=== PATIENT | male | born 1940 | race African-American/Black ===

== ENCOUNTER 2017-10-18 13:16 | Emergency (ER) | payer MEDICARE ==
[~2017-10-18] VITALS: Ht 175.3 cm; Wt 73.0 kg
[~2017-10-18 13:16] MED LIST: AMLO10TA80 PO; ASPI-518 PO; SIMV40TA2 PO; TERA5CAP4; URO10; ZET10 PO
[2017-10-18 14:30] LABS: BASOPHILS % 1.1 % (0.0-2.0); EOSINOPHILS % 2.5 % (0.0-5.0); HEMATOCRIT. 34.9 % (42.0-52.0); HEMOGLOBIN. 11.5 g/dL (14.0-18.0); LYMPHOCYTES % 18.6 % (20.0-50.0); MEAN CORPUSCULAR HEMOGLOBIN 28.6 pg (28.0-32.0); MEAN CORPUSCULAR VOLUME 86.6 fL (80.0-94.0); MEAN PLATELET VOLUME 8.2 fl (7.4-10.4); MONOCYTES % 8.9 % (2.0-8.0); NEUTROPHILS % 68.9 % (40.0-76.0); PLATELET 182 x1000/uL (130-400); RED BLOOD CELL COUNT 4.03 mill/uL (4.7-6.1)
[2017-10-18 14:36] LABS: CHLORIDE 105 mEq/L (98-107)
[2017-10-18 14:38] LABS: PROTHROMBIN TIME 10.3 sec (9.4-11.6)
[2017-10-18 17:46] VITALS: BP 134/76
== END 2017-10-18 17:47 | disposition home or self-care (01) ==
LOC: ER 14:32
DX: R42 Dizziness and giddiness (principal); H53.2 Diplopia; R53.1 Weakness; I10 Essential (primary) hypertension; I25.10 Atherosclerotic heart disease of native coronary artery without angina pectoris; Z95.1 Presence of aortocoronary bypass graft
CPT/HCPCS: 36415; 70450; 80053; 84484; 85025; 85610; 85730; 93005; 99285

== ENCOUNTER 2019-09-09 09:41 | Inpatient (IN) | payer MEDICARE ==
[~2019-09-09] VITALS: Ht 327.7 cm; Wt 79.4 kg
[~2019-09-09 09:41] MED LIST changes: +EZET10TA13 PO; -ZET10 PO
[2019-09-09] MEDS ORDERED: SODIUM CHLORIDE 0.9% 500 ML IV ONE (10:30)
[2019-09-09 11:07] LABS: BASOPHILS % 0.8 % (0.0-2.0); EOSINOPHILS % 5.4 % (0.0-5.0); HEMATOCRIT. 38.7 % (42.0-52.0); HEMOGLOBIN. 12.7 g/dL (14.0-18.0); MEAN CORPUSCULAR HEMOGLOBIN 28.4 pg (28.0-32.0); MEAN CORPUSCULAR VOLUME 86.2 fL (80.0-94.0); MEAN PLATELET VOLUME 8.6 fl (7.4-10.4); MONOCYTES % 10.9 % (2.0-8.0); NEUTROPHILS % 64.9 % (40.0-76.0); PLATELET 193 x1000/uL (130-400); RED BLOOD CELL COUNT 4.49 mill/uL (4.7-6.1); RED CELL DISTRIBUTION WIDTH 15.3 % (11.6-14.6)
[2019-09-09 11:13] LABS: CHLORIDE 111 mEq/L (98-107)
[2019-09-09] MEDS ORDERED: ASPIRIN 81MG TABLET PO NR (12:30)
[2019-09-09 12:32] LABS: CLARITY URINE CLEAR (CLEAR); COLOR URINE YELLOW (YELLOW); KETONES URINE NEGATIVE (NEGATIVE); LEUKOCYTE ESTERASE URINE NEGATIVE (NEGATIVE); NITRITE URINE NEGATIVE (NEGATIVE); OCCULT BLOOD URINE NEGATIVE (NEGATIVE); PROTEIN URINE 1+ (NEGATIVE); SPECIFIC GRAVITY URINE 1.016 (1.005-1.030); UROBILINOGEN URINE 0.2 E.U./dL (0.2-1.0)
[2019-09-09] MEDS ORDERED: ACETAMINOPHEN 325MG TABLET PO PRN (14:45)
[2019-09-09] MEDS ORDERED: IPRATROPIUM/ALBUTEROL 0.5-3(2.5)MG/3ML NEB NEB PRN (14:45)
[2019-09-09] MEDS ORDERED: ACETAMINOPHEN 650MG SUPP PR PRN (14:45)
[2019-09-09] MEDS ORDERED: DIPHENHYDRAMINE 50MG/ML VIAL IV PRN (14:45)
[2019-09-09] MEDS ORDERED: DOCUSATE SODIUM 100MG CAPSULE PO PRN (14:45)
[2019-09-09] MEDS ORDERED: ONDANSETRON HCL 4MG/2ML INJ IV PRN (14:45)
[2019-09-09] MEDS ORDERED: NA PHOS,M-B/NA PHOS,DI-BA ENEMA 118ML PR PRN (14:45)
[2019-09-09] MEDS ORDERED: CLONIDINE 0.1MG TABLET PO PRN (14:45)
[2019-09-09] MEDS ORDERED: GUAIFENESIN 200MG/10ML SUGAR FREE UDC PO PRN (14:45)
[2019-09-09] MEDS ORDERED: MAGNESIUM/ALUMINUM HYDROXIDE/SIMETHICONE 30ML UDC PO PRN (14:45)
[2019-09-09] MEDS ORDERED: HYDROCODONE/ACETAMINOPHEN 5/325MG TABLET PO PRN (14:45)
[2019-09-09] MEDS ORDERED: HYDRALAZINE 20MG/ML VIAL IV NR (16:00)
[2019-09-09] MEDS ORDERED: LORA10TA7 MT (16:52)
[2019-09-09] MEDS ORDERED: LORA-250 MT (16:52)
[2019-09-09 17:00] VITALS: BP 187/83
[2019-09-09] MEDS: AMLODIPINE 10MG TABLET PO SCH (18:14)
[2019-09-09] MEDS: NITROGLYCERIN OINT 1GM/INCH UDPKT TD SCH ×2 (18:15→20:58)
[2019-09-09 18:23] VITALS: BP 187/83
[2019-09-09 18:40] VITALS: BP 181/97
[2019-09-09 20:00] VITALS: BP 190/100
[2019-09-09] MEDS: ENOXAPARIN 40MG/0.4ML SYR SUBCUT SCH (20:58)
[2019-09-09] MEDS ORDERED: ATORVASTATIN CALCIUM 20MG TABLET PO SCH (21:00)
[2019-09-09] MEDS: HYDRALAZINE HCL 50MG TABLET PO SCH (21:01)
[2019-09-09] MEDS: LORAZEPAM 0.5MG TABLET PO PRN (23:29)
[2019-09-10] VITALS (7 sets, daily range): BP systolic 132–165; BP diastolic 72–87
[2019-09-10] MEDS: NITROGLYCERIN OINT 1GM/INCH UDPKT TD SCH ×3 (05:07→22:15)
[2019-09-10] MEDS: HYDRALAZINE HCL 50MG TABLET PO SCH ×3 (05:07→22:15)
[2019-09-10 06:12] LABS: BASOPHILS % 1.1 % (0.0-2.0); EOSINOPHILS % 7.4 % (0.0-5.0); HEMATOCRIT. 36.4 % (42.0-52.0); HEMOGLOBIN. 12.1 g/dL (14.0-18.0); LYMPHOCYTES % 21.6 % (20.0-50.0); MEAN CORPUSCULAR HEMOGLOBIN 28.4 pg (28.0-32.0); MEAN CORPUSCULAR VOLUME 85.5 fL (80.0-94.0); MEAN PLATELET VOLUME 8.8 fl (7.4-10.4); NEUTROPHILS % 60.9 % (40.0-76.0); PLATELET 191 x1000/uL (130-400); RED BLOOD CELL COUNT 4.26 mill/uL (4.7-6.1); RED CELL DISTRIBUTION WIDTH 15.2 % (11.6-14.6)
[2019-09-10 06:17] LABS: CHLORIDE 109 mEq/L (98-107)
[2019-09-10 06:25] LABS: LDL CHOLESTEROL 169 mg/dL (5-100)
[2019-09-10 06:26] LABS: CREATINE KINASE 310 IU/L (39-308); CREATINE KINASE MB FRACTION 2.3 ng/mL (0.5-3.6); HDL CHOLESTEROL 61 mg/dL (40-59); T4 FREE 0.93 ng/dL (0.76-1.46)
[2019-09-10 06:49] LABS: VITAMIN B12 SERUM 1153 pg/mL (211-911)
[2019-09-10] MEDS ORDERED: MEDICATION NOT ON FORMULARY EA (Simvastatin (Zocor) 40 MG) PO SCH (09:00)
[2019-09-10] MEDS: AMLODIPINE 10MG TABLET PO SCH (09:06)
[2019-09-10] MEDS: EZETIMIBE 10MG TABLET PO SCH (09:06)
[2019-09-10] MEDS: ASPIRIN 81MG EC TABLET PO SCH (09:06)
[2019-09-10] MEDS: TERAZOSIN HCL 5MG CAPSULE PO SCH (09:06)
[2019-09-10 11:00] LABS: *AMPHETAMINES SCREEN URINE NEGATIVE (NEGATIVE); *BARBITURATES SCREEN URINE NEGATIVE (NEGATIVE); *BENZODIAZEPINES SCREEN URINE PRESUMTIVE POSITIVE (NEGATIVE); *COCAINE SCREEN URINE NEGATIVE (NEGATIVE); METHADONE URINE SCREEN NEGATIVE (NEGATIVE); OPIATES URINE SCREEN NEGATIVE (NEGATIVE); PHENCYCLIDINE URINE SCREEN NEGATIVE (NEGATIVE)
[2019-09-10 11:07] LABS: CANNABINOID URINE SCREEN NEGATIVE (NEGATIVE)
[2019-09-10] MEDS ORDERED: LORAZEPAM 2MG/ML CPJ IV PRN (15:15)
[2019-09-10 16:40] LABS: BG CARBOXYHEMOGLOBIN 0.3 % (0.5-1.5); BG DEOXYHEMOGLOBIN 3.5 % (0.0-5.0); BG HCO3 ACT 26.6 mmol/L (22.0-26.0); BG METHEMOGLOBIN 0.3 % (0.0-1.5); BG OXYGEN SATURATION 96.5 % (92.0-98.5); BG OXYHEMOGLOBIN 95.9 % (94.0-97.0); BG PCO2 41.4 mmHg (35.0-45.0); BG PH 7.425 (7.350-7.450); BG PO2 85.3 mmHg (75.0-100.0); BG SAMPLE SITE RIGHT RADIAL; BG TOTAL HEMOGLOBIN 12.5 g/dL (12.0-18.0); BG VENT MODE ROOM AIR
[2019-09-10] MEDS ORDERED: LEVETIRACETAM 500 MG in SODIUM CHLORIDE 0.9% 100 ML IV SCH (17:00)
[2019-09-10] MEDS: BLOOD SUGAR DIAGNOSTIC STRIP TEST SCH ×2 (18:25→20:46)
[2019-09-10 20:21] LABS: HEMATOCRIT 36.9 % (42.0-52.0); HEMOGLOBIN 12.1 g/dL (14.0-18.0); MEAN CORPUSCULAR HEMOGLOBIN 28.2 pg (28.0-32.0); MEAN CORPUSCULAR VOLUME 86.2 fL (80.0-94.0); PLATELET 184 x1000/uL (130-400); RED BLOOD CELL COUNT 4.29 mill/uL (4.7-6.1); RED CELL DISTRIBUTION WIDTH 15.3 % (11.6-14.6)
[2019-09-10] MEDS: CLOPIDOGREL 75MG TABLET PO SCH (20:46)
[2019-09-10] MEDS: ATORVASTATIN CALCIUM 40MG TABLET PO SCH (20:46)
[2019-09-10] MEDS: ENOXAPARIN 40MG/0.4ML SYR SUBCUT SCH (20:46)
[2019-09-10] MEDS: LEVETIRACETAM 500MG PREMIX 100 ML IV SCH (22:16)
[2019-09-11] VITALS (11 sets, daily range): BP systolic 110–152; BP diastolic 51–83
[2019-09-11 00:07] LABS: INR 0.9; PROTHROMBIN TIME 10.2 sec (9.6-11.0)
[2019-09-11] MEDS: HYDRALAZINE HCL 50MG TABLET PO SCH ×3 (06:04→22:00)
[2019-09-11] MEDS: NITROGLYCERIN OINT 1GM/INCH UDPKT TD SCH ×3 (06:04→21:59)
[2019-09-11] MEDS: BLOOD SUGAR DIAGNOSTIC STRIP TEST SCH ×4 (08:04→21:00)
[2019-09-11] MEDS: CLOPIDOGREL 75MG TABLET PO SCH (09:25)
[2019-09-11] MEDS: ASPIRIN 81MG EC TABLET PO SCH (09:25)
[2019-09-11] MEDS: TERAZOSIN HCL 5MG CAPSULE PO SCH (09:26)
[2019-09-11] MEDS: EZETIMIBE 10MG TABLET PO SCH (09:26)
[2019-09-11] MEDS: AMLODIPINE 10MG TABLET PO SCH (09:26)
[2019-09-11] MEDS: LEVETIRACETAM 500MG PREMIX 100 ML IV SCH ×2 (09:27→21:59)
[2019-09-11 10:07] LABS: BASOPHILS % 0.7 % (0.0-2.0); EOSINOPHILS % 7.2 % (0.0-5.0); HEMOGLOBIN. 12.1 g/dL (14.0-18.0); LYMPHOCYTES % 15.5 % (20.0-50.0); MEAN CORPUSCULAR VOLUME 85.8 fL (80.0-94.0); MEAN PLATELET VOLUME 8.8 fl (7.4-10.4); MONOCYTES % 7.8 % (2.0-8.0); NEUTROPHILS % 68.8 % (40.0-76.0); PLATELET 181 x1000/uL (130-400); RED BLOOD CELL COUNT 4.31 mill/uL (4.7-6.1); RED CELL DISTRIBUTION WIDTH 15.2 % (11.6-14.6)
[2019-09-11] MEDS ORDERED: ATORVASTATIN CALCIUM 40MG TABLET PO SCH (21:00)
[2019-09-11] MEDS: ATORVASTATIN CALCIUM 40MG TABLET PO SCH (21:59)
[2019-09-11] MEDS: LORAZEPAM 0.5MG TABLET PO PRN (22:00)
[2019-09-11] MEDS: ENOXAPARIN 40MG/0.4ML SYR SUBCUT SCH (22:02)
[2019-09-12] VITALS (13 sets, daily range): BP systolic 118–151; BP diastolic 49–86
[2019-09-12 06:34] LABS: BASOPHILS % 0.6 % (0.0-2.0); EOSINOPHILS % 7.7 % (0.0-5.0); HEMATOCRIT. 35.2 % (42.0-52.0); HEMOGLOBIN. 11.6 g/dL (14.0-18.0); LYMPHOCYTES % 19.9 % (20.0-50.0); MEAN CORPUSCULAR HEMOGLOBIN 28.3 pg (28.0-32.0); MEAN CORPUSCULAR VOLUME 85.7 fL (80.0-94.0); MEAN PLATELET VOLUME 8.8 fl (7.4-10.4); MONOCYTES % 11.2 % (2.0-8.0); NEUTROPHILS % 60.6 % (40.0-76.0); PLATELET 183 x1000/uL (130-400); RED BLOOD CELL COUNT 4.11 mill/uL (4.7-6.1); RED CELL DISTRIBUTION WIDTH 15.4 % (11.6-14.6)
[2019-09-12] MEDS: NITROGLYCERIN OINT 1GM/INCH UDPKT TD SCH ×3 (06:37→21:03)
[2019-09-12] MEDS: HYDRALAZINE HCL 50MG TABLET PO SCH ×3 (06:38→21:02)
[2019-09-12] MEDS: BLOOD SUGAR DIAGNOSTIC STRIP TEST SCH ×4 (07:30→21:03)
[2019-09-12] MEDS: TERAZOSIN HCL 5MG CAPSULE PO SCH (09:20)
[2019-09-12] MEDS: CLOPIDOGREL 75MG TABLET PO SCH (09:20)
[2019-09-12] MEDS: ASPIRIN 81MG EC TABLET PO SCH (09:20)
[2019-09-12] MEDS: AMLODIPINE 10MG TABLET PO SCH (09:20)
[2019-09-12] MEDS: LEVETIRACETAM 500MG PREMIX 100 ML IV SCH ×2 (09:20→21:02)
[2019-09-12] MEDS: EZETIMIBE 10MG TABLET PO SCH (09:20)
[2019-09-12 10:34] LABS: BG CARBOXYHEMOGLOBIN 1.2 % (0.5-1.5); BG DEOXYHEMOGLOBIN 3.4 % (0.0-5.0); BG FRACTION INSPIRED OXYGEN 21; BG HCO3 ACT 24.3 mmol/L (22.0-26.0); BG METHEMOGLOBIN 0.1 % (0.0-1.5); BG OXYGEN SATURATION 96.6 % (92.0-98.5); BG OXYHEMOGLOBIN 95.3 % (94.0-97.0); BG PCO2 38.4 mmHg (35.0-45.0); BG PH 7.419 (7.350-7.450); BG PO2 87.3 mmHg (75.0-100.0); BG SAMPLE SITE RIGHT BRACHIAL; BG TOTAL HEMOGLOBIN 12.6 g/dL (12.0-18.0); BG VENT MODE ROOM AIR
[2019-09-12] MEDS ORDERED: IOHEXOL-350 100 ML BOTTLE ONE (17:29)
[2019-09-12] MEDS: ATORVASTATIN CALCIUM 40MG TABLET PO SCH (21:02)
[2019-09-12] MEDS: ENOXAPARIN 40MG/0.4ML SYR SUBCUT SCH (21:02)
[2019-09-13] VITALS (9 sets, daily range): BP systolic 114–141; BP diastolic 63–86
[2019-09-13] MEDS: HYDRALAZINE HCL 50MG TABLET PO SCH ×2 (06:06→14:05)
[2019-09-13] MEDS: NITROGLYCERIN OINT 1GM/INCH UDPKT TD SCH ×2 (06:06→14:05)
[2019-09-13 06:51] LABS: HEMATOCRIT. 34.7 % (42.0-52.0); HEMOGLOBIN. 11.4 g/dL (14.0-18.0); LYMPHOCYTES % 20.3 % (20.0-50.0); MEAN CORPUSCULAR HEMOGLOBIN 28.1 pg (28.0-32.0); MEAN CORPUSCULAR VOLUME 85.8 fL (80.0-94.0); MEAN PLATELET VOLUME 8.9 fl (7.4-10.4); MONOCYTES % 12.5 % (2.0-8.0); NEUTROPHILS % 58.2 % (40.0-76.0); PLATELET 191 x1000/uL (130-400); RED BLOOD CELL COUNT 4.04 mill/uL (4.7-6.1); RED CELL DISTRIBUTION WIDTH 14.8 % (11.6-14.6)
[2019-09-13] MEDS: BLOOD SUGAR DIAGNOSTIC STRIP TEST SCH ×2 (07:30→13:10)
[2019-09-13] MEDS: AMLODIPINE 10MG TABLET PO SCH (08:42)
[2019-09-13] MEDS: TERAZOSIN HCL 5MG CAPSULE PO SCH (08:42)
[2019-09-13] MEDS: ASPIRIN 81MG EC TABLET PO SCH (08:42)
[2019-09-13] MEDS: EZETIMIBE 10MG TABLET PO SCH (08:42)
[2019-09-13] MEDS: LEVETIRACETAM 500MG PREMIX 100 ML IV SCH (08:43)
[2019-09-13] MEDS: CLOPIDOGREL 75MG TABLET PO SCH (08:45)
[2019-09-13] MEDS ORDERED: KEPP250 MT (13:14)
[2019-09-13] MEDS ORDERED: AMLO5TAB4 MT (13:14)
[2019-09-13] MEDS ORDERED: ASPI-1497 MT (13:14)
[2019-09-13] MEDS ORDERED: LIP40 MT (13:14)
[2019-09-13] MEDS ORDERED: CLOP75TA4 MT (13:14)
== END 2019-09-13 16:10 | disposition home health service (06) | DRG 64 ==
LOC: ER 09:41 → 6WST 13:47 → ENRESERV 14:48 → 5EST 09-10 15:17
PROVIDERS: ADMIT Internal Medicine; ATTEND Internal Medicine
PROC: 4A00X4Z Measurement of Central Nervous Electrical Activity, External Approach (ICD-10-PCS; principal; 2019-09-13)
DX: I63.9 Cerebral infarction, unspecified (principal); I50.33 Acute on chronic diastolic (congestive) heart failure; I13.0 Hypertensive heart and chronic kidney disease with heart failure and stage 1 through stage 4 chronic kidney disease, or unspecified chronic kidney disease; I25.10 Atherosclerotic heart disease of native coronary artery without angina pectoris; I25.2 Old myocardial infarction; D64.9 Anemia, unspecified; D72.1 Eosinophilia; D72.810 Lymphocytopenia; E78.00 Pure hypercholesterolemia, unspecified; N18.9 Chronic kidney disease, unspecified; F41.9 Anxiety disorder, unspecified; M48.061 Spinal stenosis, lumbar region without neurogenic claudication; I65.21 Occlusion and stenosis of right carotid artery; E78.5 Hyperlipidemia, unspecified; N40.0 Benign prostatic hyperplasia without lower urinary tract symptoms; E87.5 Hyperkalemia; F17.210 Nicotine dependence, cigarettes, uncomplicated; I10 Essential (primary) hypertension; Z91.19 Patient's noncompliance with other medical treatment and regimen; Z85.46 Personal history of malignant neoplasm of prostate; Z95.1 Presence of aortocoronary bypass graft; Z79.02 Long term (current) use of antithrombotics/antiplatelets; Z79.82 Long term (current) use of aspirin; Z79.899 Other long term (current) drug therapy
CPT/HCPCS: 36415; 36600; 70496; 70498; 70551; 71045; 72141; 72148; 80048; 80053; 80061; 80305; 81003; 82140; 82375; 82550; 82553; 82607; 82805; 82962; 83880; 84153; 84439; 84443; 84484; 85025; 85027; 85384; 93005; 93306; 93880; 95816; 97112; 97116; 97162; 97164; 97166; 97530; 99285; J0360; J1650; J1953; J7040; J7050; Q9967; G0103

== ENCOUNTER 2020-09-24 12:34 | Inpatient (IN) | payer MEDICARE ==
[~2020-09-24] VITALS: Ht 175.3 cm; Wt 57.2 kg
[~2020-09-24 12:34] MED LIST changes: -AMLO10TA80 PO; +AMLO5TAB4 MT; -EZET10TA13 PO; +HYDR-4135 PO; +LIP40 MT; +LORA-250 MT; -SIMV40TA2 PO; -TERA5CAP4; -URO10
[2020-09-24 14:24] LABS: BASOPHILS % 0.5 % (0.0-2.0); EOSINOPHILS % 2.3 % (0.0-5.0); HEMATOCRIT. 38.3 % (42.0-52.0); HEMOGLOBIN. 12.6 g/dL (14.0-18.0); LYMPHOCYTES % 12.6 % (20.0-50.0); MEAN CORPUSCULAR HEMOGLOBIN 28.2 pg (28.0-32.0); MEAN CORPUSCULAR VOLUME 85.7 fL (80.0-94.0); MEAN PLATELET VOLUME 8.6 fl (7.4-10.4); MONOCYTES % 6.6 % (2.0-8.0); PLATELET 202 x1000/uL (130-400); RED BLOOD CELL COUNT 4.47 mill/uL (4.7-6.1); RED CELL DISTRIBUTION WIDTH 14.2 % (11.6-14.6)
[2020-09-24 14:26] LABS: CHLORIDE 109 mEq/L (98-107)
[2020-09-24] MEDS ORDERED: SODIUM CHLORIDE 0.9% 1,000 ML IV ONE (15:00)
[2020-09-24] MEDS ORDERED: HYDROCODONE/ACETAMINOPHEN 5/325MG TABLET PO PRN (17:30)
[2020-09-24] MEDS ORDERED: ACETAMINOPHEN 325MG TABLET PO PRN (17:30)
[2020-09-24] MEDS ORDERED: ACETAMINOPHEN 650MG SUPP PR PRN (17:30)
[2020-09-24] MEDS ORDERED: NA PHOS,M-B/NA PHOS,DI-BA ENEMA 118ML PR PRN (17:30)
[2020-09-24] MEDS ORDERED: MAGNESIUM/ALUMINUM HYDROXIDE/SIMETHICONE 30ML UDC PO PRN (17:30)
[2020-09-24] MEDS ORDERED: DOCUSATE SODIUM 100MG CAPSULE PO PRN (17:30)
[2020-09-24] MEDS ORDERED: DIPHENHYDRAMINE 50MG/ML VIAL IV PRN (17:30)
[2020-09-24] MEDS ORDERED: ONDANSETRON HCL 4MG/2ML INJ IV PRN (17:30)
[2020-09-24] MEDS ORDERED: IPRATROPIUM/ALBUTEROL 0.5-3(2.5)MG/3ML NEB NEB PRN (17:30)
[2020-09-24] MEDS ORDERED: LORAZEPAM 0.5MG TABLET PO PRN (17:30)
[2020-09-24] MEDS ORDERED: GUAIFENESIN 200MG/10ML SUGAR FREE UDC PO PRN (17:30)
[2020-09-24] MEDS ORDERED: MECLIZINE 25MG TABLET PO PRN (17:45)
[2020-09-24] MEDS ORDERED: MECLIZINE 25MG TABLET PO NR (17:45)
[2020-09-24 17:49] LABS: PROTHROMBIN TIME 10.3 sec (9.6-11.0)
[2020-09-24] MEDS: ENOXAPARIN 40MG/0.4ML SYR SUBCUT SCH (18:39)
[2020-09-24] MEDS: SODIUM CHLORIDE 0.45% 1,000 ML IV SCH (18:40)
[2020-09-24 19:25] LABS: CLARITY URINE CLEAR (CLEAR); COLOR URINE YELLOW (YELLOW); KETONES URINE NEGATIVE (NEGATIVE); LEUKOCYTE ESTERASE URINE NEGATIVE (NEGATIVE); NITRITE URINE NEGATIVE (NEGATIVE); OCCULT BLOOD URINE NEGATIVE (NEGATIVE); PROTEIN URINE NEGATIVE (NEGATIVE); SPECIFIC GRAVITY URINE 1.019 (1.005-1.030); UROBILINOGEN URINE 0.2 E.U./dL (0.2-1.0)
[2020-09-24 19:38] LABS: *AMPHETAMINES SCREEN URINE NEGATIVE (NEGATIVE); *BARBITURATES SCREEN URINE NEGATIVE (NEGATIVE); *BENZODIAZEPINES SCREEN URINE PRESUMTIVE POSITIVE (NEGATIVE); *COCAINE SCREEN URINE NEGATIVE (NEGATIVE); CANNABINOID URINE SCREEN NEGATIVE (NEGATIVE); METHADONE URINE SCREEN NEGATIVE (NEGATIVE); OPIATES URINE SCREEN NEGATIVE (NEGATIVE); PHENCYCLIDINE URINE SCREEN NEGATIVE (NEGATIVE)
[2020-09-24] MEDS: FAMOTIDINE 20MG TABLET PO SCH (20:33)
[2020-09-24 23:00] VITALS: BP 160/71
[2020-09-24 23:59] LABS: CREATINE KINASE 173 IU/L (39-308)
[2020-09-25] VITALS: BP_SYST 195; BP_SYST 198; BP_SYST 202; BP_DIAS 79; BP_DIAS 89; BP_DIAS 90
[2020-09-25] LABS: CREATINE KINASE MB FRACTION 1.3 ng/mL (0.5-3.6)
[2020-09-25] MEDS ORDERED: *PATIENT'S OWN MEDICATION STORAGE XX SCH (00:30)
[2020-09-25] MEDS: CLONIDINE 0.1MG TABLET PO PRN ×2 (01:47→02:00)
[2020-09-25] MEDS ORDERED: HYDR-4009 PO (02:47)
[2020-09-25] MEDS ORDERED: TEMA30CA PO (02:52)
[2020-09-25] MEDS ORDERED: TERA5CAP4 PO (02:52)
[2020-09-25 04:00] VITALS: BP 128/77
[2020-09-25 08:00] VITALS: BP_SYST 143; BP_SYST 148; BP_SYST 162; BP_DIAS 82; BP_DIAS 89; BP_DIAS 94
[2020-09-25 09:05] LABS: EOSINOPHILS % 5.7 % (0.0-5.0); HEMOGLOBIN. 11.5 g/dL (14.0-18.0); LYMPHOCYTES % 19.1 % (20.0-50.0); MEAN CORPUSCULAR HEMOGLOBIN 27.5 pg (28.0-32.0); MEAN CORPUSCULAR VOLUME 85.7 fL (80.0-94.0); MEAN PLATELET VOLUME 9.1 fl (7.4-10.4); MONOCYTES % 13.3 % (2.0-8.0); NEUTROPHILS % 60.9 % (40.0-76.0); PLATELET 195 x1000/uL (130-400); RED CELL DISTRIBUTION WIDTH 14.3 % (11.6-14.6)
[2020-09-25 09:13] LABS: CHLORIDE 111 mEq/L (98-107)
[2020-09-25 09:21] LABS: LDL CHOLESTEROL 174 mg/dL (5-100)
[2020-09-25 09:23] LABS: CREATINE KINASE 148 IU/L (39-308)
[2020-09-25 09:24] LABS: CREATINE KINASE MB FRACTION 1.5 ng/mL (0.5-3.6); HDL CHOLESTEROL 49 mg/dL (40-59)
[2020-09-25] MEDS: ASPIRIN 81MG EC TABLET PO SCH (09:26)
[2020-09-25] MEDS: SODIUM CHLORIDE 0.45% 1,000 ML IV SCH (09:27)
[2020-09-25 12:00] VITALS: BP 130/79
[2020-09-25 16:00] VITALS: BP 128/74
[2020-09-25] MEDS: ENOXAPARIN 40MG/0.4ML SYR SUBCUT SCH (18:18)
[2020-09-25 20:00] VITALS: BP 155/84
[2020-09-25] MEDS ORDERED: MECL-159 MT (20:22)
[2020-09-25] MEDS: FAMOTIDINE 20MG TABLET PO SCH (20:41)
[2020-09-26] VITALS: BP 139/89
[2020-09-26 04:00] VITALS: BP 164/80
[2020-09-26 06:15] LABS: HEMATOCRIT 36.1 % (42.0-52.0); HEMOGLOBIN 11.3 g/dL (14.0-18.0); MEAN CORPUSCULAR HEMOGLOBIN 27.1 pg (28.0-32.0); MEAN CORPUSCULAR VOLUME 86.6 fL (80.0-94.0); PLATELET 201 x1000/uL (130-400); RED BLOOD CELL COUNT 4.17 mill/uL (4.7-6.1); RED CELL DISTRIBUTION WIDTH 14.7 % (11.6-14.6)
[2020-09-26 08:00] VITALS: BP_SYST 146; BP_SYST 160; BP_DIAS 76; BP_DIAS 81
[2020-09-26] MEDS: ASPIRIN 81MG EC TABLET PO SCH (08:18)
[2020-09-26 12:00] VITALS: BP 157/81
[2020-09-26 13:19] VITALS: BP 157/81
[2020-09-26] MEDS ORDERED: ENOXAPARIN 30MG/0.3ML SYR SUBCUT SCH (18:00)
== END 2020-09-26 15:10 | disposition home health service (06) | DRG 73 ==
LOC: ER 12:34 → 5WST 16:55 → EDBEDREQTM 16:57 → EDBEDREQ 16:57 → ENRESERV 21:46
PROVIDERS: ADMIT Internal Medicine; ATTEND Internal Medicine
DX: G90.8 Other disorders of autonomic nervous system (principal); N17.0 Acute kidney failure with tubular necrosis; I50.32 Chronic diastolic (congestive) heart failure; I11.0 Hypertensive heart disease with heart failure; D64.9 Anemia, unspecified; E78.00 Pure hypercholesterolemia, unspecified; Z20.822 Contact with and (suspected) exposure to COVID-19; E78.5 Hyperlipidemia, unspecified; F41.9 Anxiety disorder, unspecified; F17.200 Nicotine dependence, unspecified, uncomplicated; N40.0 Benign prostatic hyperplasia without lower urinary tract symptoms; Z86.73 Personal history of transient ischemic attack (TIA), and cerebral infarction without residual deficits; Z95.1 Presence of aortocoronary bypass graft; Z79.899 Other long term (current) drug therapy; I65.21 Occlusion and stenosis of right carotid artery; Z72.89 Other problems related to lifestyle
CPT/HCPCS: 36415; 70551; 71045; 80048; 80053; 80061; 80305; 81003; 82550; 82553; 83880; 84439; 84443; 84484; 85025; 85027; 87426; 93005; 93880; 97162; 99285; J1650; J7030; J8597

== ENCOUNTER 2021-10-28 08:12 | Emergency (ER) | payer MEDICARE ==
[~2021-10-28] VITALS: Ht 185.4 cm; Wt 77.0 kg
[~2021-10-28 08:12] MED LIST changes: +HYDR-4009 PO; +MECL-159 MT; +TEMA30CA PO; +TERA5CAP4 PO
[2021-10-28 08:47] LABS: BASOPHILS % 0.4 % (0.0-2.0); EOSINOPHILS % 0.1 % (0.0-5.0); HEMATOCRIT. 35.9 % (42.0-52.0); HEMOGLOBIN. 11.6 g/dL (14.0-18.0); LYMPHOCYTES % 8.1 % (20.0-50.0); MEAN CORPUSCULAR HEMOGLOBIN 27.1 pg (28.0-32.0); MEAN CORPUSCULAR VOLUME 83.8 fL (80.0-94.0); MEAN PLATELET VOLUME 8.6 fl (7.4-10.4); MONOCYTES % 9.8 % (2.0-8.0); NEUTROPHILS % 81.6 % (40.0-76.0); PLATELET 198 x1000/uL (130-400); RED BLOOD CELL COUNT 4.29 mill/uL (4.7-6.1); RED CELL DISTRIBUTION WIDTH 14.8 % (11.6-14.6)
[2021-10-28 08:55] LABS: CHLORIDE 106 mEq/L (98-107)
[2021-10-28 10:50] VITALS: BP 132/70
[2021-10-28 11:06] LABS: BG BASE EXCESS -0.6 mmol/L (-2.0-2.0); BG CARBOXYHEMOGLOBIN 0.3 % (0.5-1.5); BG DEOXYHEMOGLOBIN 3.3 % (0.0-5.0); BG FRACTION INSPIRED OXYGEN 21; BG HCO3 ACT 23.6 mmol/L (22.0-26.0); BG METHEMOGLOBIN 0.2 % (0.0-1.5); BG OXYGEN SATURATION 96.7 % (92.0-98.5); BG OXYHEMOGLOBIN 96.2 % (94.0-97.0); BG PCO2 37.1 mmHg (35.0-45.0); BG PH 7.421 (7.350-7.450); BG PO2 88.7 mmHg (75.0-100.0); BG SAMPLE SITE RIGHT BRACHIAL; BG TOTAL HEMOGLOBIN 12.1 g/dL (12.0-18.0); BG VENT MODE ROOM AIR
[2021-10-28] MEDS ORDERED: RITO100T4 PO (11:59)
[2021-10-28] MEDS ORDERED: NIRMATRELVIR PO (11:59)
[2021-10-28] MEDS ORDERED: TOPUD PO (11:59)
== END 2021-10-28 12:32 | disposition home or self-care (01) ==
LOC: ER 08:12
DX: U07.1 COVID-19 (principal); I10 Essential (primary) hypertension; I25.10 Atherosclerotic heart disease of native coronary artery without angina pectoris; Z95.1 Presence of aortocoronary bypass graft; Z86.73 Personal history of transient ischemic attack (TIA), and cerebral infarction without residual deficits
CPT/HCPCS: 36415; 36600; 71045; 80053; 82375; 82805; 85025; 87426; 93005; 99285; C9803

== ENCOUNTER 2024-11-24 11:59 | Emergency (ER) | payer MEDICARE ==
[~2024-11-24] VITALS: Ht 175.3 cm; Wt 64.0 kg
[~2024-11-24 11:59] MED LIST changes: -AMLO5TAB4 MT; +AMLO5TAB5 MT; -HYDR-4135 PO; +HYDR50TA40 PO; -MECL-159 MT; +MECL-299 MT; +NIRMATRELVIR PO; +RITO100T4 PO; +TOPUD PO
[2024-11-24 12:06] VITALS: O2SAT 99
[2024-11-24 12:54] LABS: BASOPHILS % 0.5 % (0.0-2.0); EOSINOPHILS % 1.7 % (0.0-5.0); HEMATOCRIT. 33.3 % (42.0-52.0); HEMOGLOBIN. 10.7 g/dL (14.0-18.0); LYMPHOCYTES % 13.2 % (20.0-50.0); MEAN PLATELET VOLUME 8.6 fl (7.4-10.4); MONOCYTES % 6.4 % (2.0-8.0); NEUTROPHILS % 78.2 % (40.0-76.0); PLATELET 196 x1000/uL (130-400); RED BLOOD CELL COUNT 3.92 mill/uL (4.7-6.1); RED CELL DISTRIBUTION WIDTH 15.9 % (11.6-14.6)
[2024-11-24 13:09] LABS: CREATININE 2.0 mg/dL (0.6-1.3)
[2024-11-24 13:10] LABS: TROPONIN I HIGH SENSITIVITY 18 ng/L (3.0-53); UREA NITROGEN BLOOD 37 mg/dL (9-23)
[2024-11-24 15:08] LABS: CLARITY URINE CLEAR (CLEAR); COLOR URINE YELLOW (YELLOW); GLUCOSE URINE NEGATIVE (NEGATIVE); KETONES URINE NEGATIVE (NEGATIVE); LEUKOCYTE ESTERASE URINE NEGATIVE (NEGATIVE); NITRITE URINE NEGATIVE (NEGATIVE); OCCULT BLOOD URINE NEGATIVE (NEGATIVE); PH URINE 6.5 (4.5-8.0); PROTEIN URINE TRACE (NEGATIVE); SPECIFIC GRAVITY URINE 1.016 (1.005-1.030); UROBILINOGEN URINE 0.2 E.U./dL (0.2-1.0)
[2024-11-24 15:35] LABS: BACTERIA URINE NONE SEEN; RBC URINE 0-2 /hpf (0-2); SQUAMOUS EPITHELIAL CELL URINE NONE SEEN /lpf (RARE/1+); WBC URINE NONE SEEN /hpf (0-2)
[2024-11-24] MEDS ORDERED: TOPUD PO (15:40)
[2024-11-24 15:49] VITALS: BP 158/75; PULSE 63; RESP 14; TEMP 36.5; O2SAT 98
[2024-11-24] MEDS: ACETAMINOPHEN 325MG TABLET PO ONE (16:01)
== END 2024-11-24 16:36 | disposition home or self-care (01) ==
LOC: ER 11:59
DX: R51.9 Headache, unspecified (principal); M54.9 Dorsalgia, unspecified; I10 Essential (primary) hypertension; E78.00 Pure hypercholesterolemia, unspecified; I51.9 Heart disease, unspecified; R06.02 Shortness of breath; Z79.899 Other long term (current) drug therapy; Z79.82 Long term (current) use of aspirin; Z86.73 Personal history of transient ischemic attack (TIA), and cerebral infarction without residual deficits; W22.09XA Striking against other stationary object, initial encounter; Y93.89 Activity, other specified; Y92.89 Other specified places as the place of occurrence of the external cause; Y99.8 Other external cause status
CPT/HCPCS: 36415; 71045; 80048; 81003; 83880; 84484; 85025; 93005; 99285; A4606

== ENCOUNTER 2024-12-06 13:51 | Emergency (ER) | payer BC, MEDICARE ==
[~2024-12-06] VITALS: Ht 177.8 cm; Wt 69.0 kg
[2024-12-06 14:13] VITALS: TEMP 36.9; O2SAT 98
[2024-12-06 17:42] VITALS: BP 151/59; PULSE 67; RESP 18; O2SAT 100
== END 2024-12-06 17:45 | disposition home or self-care (01) ==
LOC: ER 13:51
DX: S06.0XAA Concussion with loss of consciousness status unknown, initial encounter (principal); F03.90 Unspecified dementia, unspecified severity, without behavioral disturbance, psychotic disturbance, mood disturbance, and anxiety; I10 Essential (primary) hypertension; E78.00 Pure hypercholesterolemia, unspecified; N40.0 Benign prostatic hyperplasia without lower urinary tract symptoms; Z95.1 Presence of aortocoronary bypass graft; Z86.73 Personal history of transient ischemic attack (TIA), and cerebral infarction without residual deficits; Z79.899 Other long term (current) drug therapy; Z79.82 Long term (current) use of aspirin; W19.XXXA Unspecified fall, initial encounter; Y93.89 Activity, other specified; Y92.89 Other specified places as the place of occurrence of the external cause; Y99.8 Other external cause status
CPT/HCPCS: 99284